=== PATIENT | female | born 1960 | race African-American/Black ===

== ENCOUNTER 2020-06-21 16:14 | Inpatient (IN) | payer MEDICAID, OTHER ==
[~2020-06-21] VITALS: Ht 165.1 cm; Wt 68.3 kg
[2020-06-21] MEDS ORDERED: LORAZEPAM 2MG/ML CPJ IM STA (16:54)
[2020-06-21] MEDS ORDERED: SODIUM CHLORIDE 0.9% 1,000 ML IV ONE ×2 (17:00)
[2020-06-21] MEDS ORDERED: LORAZEPAM 2MG/ML CPJ IV ONE (17:15)
[2020-06-21 17:25] LABS: BASOPHILS % 0.8 % (0.0-2.0); EOSINOPHILS % 1.9 % (0.0-5.0); HEMATOCRIT. 30.5 % (36.0-48.0); HEMOGLOBIN. 10.5 g/dL (12.0-16.0); LYMPHOCYTES % 33.7 % (20.0-50.0); MEAN CORPUSCULAR HEMOGLOBIN 32.1 pg (28.0-32.0); MEAN CORPUSCULAR VOLUME 93.2 fL (81.0-99.0); MEAN PLATELET VOLUME 8.9 fl (7.4-10.4); MONOCYTES % 8.7 % (2.0-8.0); NEUTROPHILS % 54.9 % (40.0-76.0); PLATELET 193 x1000/uL (130-400); RED BLOOD CELL COUNT 3.27 mill/uL (4.2-5.4); RED CELL DISTRIBUTION WIDTH 15.2 % (11.6-14.6)
[2020-06-21 17:27] LABS: CHLORIDE 97 mEq/L (98-107)
[2020-06-21 17:30] LABS: PARTIAL THROMBOPLASTIN TIME 27.3 sec (23.4-31.0); PROTHROMBIN TIME 10.5 sec (9.6-11.0)
[2020-06-21 17:32] LABS: ETHANOL BLOOD < 10 mg/dL
[2020-06-21] MEDS ORDERED: DEXTROSE 50% WATER 50ML SYRINGE IV ONE ×2 (18:15→18:30)
[2020-06-21] MEDS ORDERED: DEXT 10% WATER 1,000 ML IV ONE (18:30)
[2020-06-21] MEDS ORDERED: CLONIDINE 0.1MG TABLET PO PRN (20:45)
[2020-06-21] MEDS ORDERED: LORAZEPAM 2MG/ML CPJ IV PRN (20:45)
[2020-06-21] MEDS ORDERED: DOCUSATE SODIUM 100MG CAPSULE PO PRN (20:45)
[2020-06-21] MEDS ORDERED: HYDROCODONE/ACETAMINOPHEN 5/325MG TABLET PO PRN (20:45)
[2020-06-21] MEDS ORDERED: MORPHINE SULFATE 2 MG/ML CPJ (NOT FOR IM USE) IV PRN (20:45)
[2020-06-21] MEDS ORDERED: ENOXAPARIN 40MG/0.4ML SYR SUBCUT SCH (20:45)
[2020-06-21] MEDS ORDERED: IPRATROPIUM/ALBUTEROL 0.5-3(2.5)MG/3ML NEB NEB PRN (20:45)
[2020-06-21] MEDS ORDERED: NA PHOS,M-B/NA PHOS,DI-BA ENEMA 118ML PR PRN (20:45)
[2020-06-21] MEDS ORDERED: ACETAMINOPHEN 325MG TABLET PO PRN (20:45)
[2020-06-21] MEDS ORDERED: GUAIFENESIN 200MG/10ML SUGAR FREE UDC PO PRN (20:45)
[2020-06-21] MEDS ORDERED: MAGNESIUM/ALUMINUM HYDROXIDE/SIMETHICONE 30ML UDC PO PRN (20:45)
[2020-06-21] MEDS ORDERED: DIPHENHYDRAMINE 50MG/ML VIAL IV PRN (20:45)
[2020-06-21] MEDS ORDERED: ONDANSETRON HCL 4MG/2ML INJ IV PRN (20:45)
[2020-06-21] MEDS: ENOXAPARIN 30MG/0.3ML SYR SUBCUT SCH (21:36)
[2020-06-21] MEDS: DEXT 5%/0.45% NACL 1000ML 1,000 ML IV SCH (21:36)
[2020-06-22] VITALS (12 sets, daily range): BP systolic 111–150; BP diastolic 45–79
[2020-06-22] MEDS ORDERED: DEXTROSE 50% WATER 50ML SYRINGE IV ONE (01:45)
[2020-06-22] MEDS ORDERED: DEXT 10% WATER 1,000 ML IV ONE (02:00)
[2020-06-22] MEDS ORDERED: DEXTROSE 50% WATER 50ML SYRINGE IV PRN ×2 (05:15)
[2020-06-22] MEDS: BLOOD SUGAR DIAGNOSTIC STRIP TEST SCH ×4 (06:12→20:47)
[2020-06-22] MEDS: DEXT 5%/0.45% NACL 1000ML 1,000 ML IV SCH ×2 (06:23→20:47)
[2020-06-22] MEDS: INSULIN LISPRO 100 UNITS/ML SUBCUT SCH ×4 (07:20→20:55)
[2020-06-22 07:30] LABS: BASOPHILS % 0.6 % (0.0-2.0); EOSINOPHILS % 1.8 % (0.0-5.0); HEMATOCRIT. 25.9 % (36.0-48.0); HEMOGLOBIN. 9.1 g/dL (12.0-16.0); LYMPHOCYTES % 21.1 % (20.0-50.0); MEAN CORPUSCULAR HEMOGLOBIN 32.3 pg (28.0-32.0); MEAN CORPUSCULAR VOLUME 92.1 fL (81.0-99.0); MEAN PLATELET VOLUME 8.9 fl (7.4-10.4); MONOCYTES % 9.9 % (2.0-8.0); NEUTROPHILS % 66.6 % (40.0-76.0); PLATELET 168 x1000/uL (130-400); RED BLOOD CELL COUNT 2.81 mill/uL (4.2-5.4); RED CELL DISTRIBUTION WIDTH 14.9 % (11.6-14.6)
[2020-06-22 07:35] LABS: CHLORIDE 97 mEq/L (98-107)
[2020-06-22 07:45] LABS: LDL CHOLESTEROL 83 mg/dL (5-100)
[2020-06-22 07:47] LABS: HDL CHOLESTEROL 84 mg/dL (40-59); T4 FREE 1.12 ng/dL (0.76-1.46)
[2020-06-22] MEDS ORDERED: CARV12.545 PO (08:10)
[2020-06-22] MEDS ORDERED: ASPI-1406 PO (08:10)
[2020-06-22] MEDS ORDERED: POTA20TA82 PO (08:10)
[2020-06-22] MEDS ORDERED: NEPVIT PO (08:10)
[2020-06-22] MEDS ORDERED: FERR325T23 PO (08:10)
[2020-06-22] MEDS ORDERED: AMLO10TA80 PO (08:10)
[2020-06-22] MEDS ORDERED: DOCU-150 PO (08:10)
[2020-06-22] MEDS ORDERED: ERGO500013 PO (08:20)
[2020-06-22] MEDS: ASPIRIN 81MG EC TABLET PO SCH (08:30)
[2020-06-22] MEDS: ENOXAPARIN 30MG/0.3ML SYR SUBCUT SCH (20:47)
[2020-06-23] VITALS (10 sets, daily range): BP systolic 138–179; BP diastolic 57–80
[2020-06-23] MEDS: BLOOD SUGAR DIAGNOSTIC STRIP TEST SCH ×4 (06:14→21:32)
[2020-06-23] MEDS: INSULIN LISPRO 100 UNITS/ML SUBCUT SCH ×4 (07:20→21:45)
[2020-06-23 07:54] LABS: BASOPHILS % 0.6 % (0.0-2.0); EOSINOPHILS % 5.3 % (0.0-5.0); HEMATOCRIT. 24.4 % (36.0-48.0); HEMOGLOBIN. 8.6 g/dL (12.0-16.0); LYMPHOCYTES % 35.3 % (20.0-50.0); MEAN CORPUSCULAR HEMOGLOBIN 32.5 pg (28.0-32.0); MEAN CORPUSCULAR VOLUME 92.5 fL (81.0-99.0); MEAN PLATELET VOLUME 8.7 fl (7.4-10.4); MONOCYTES % 11.5 % (2.0-8.0); NEUTROPHILS % 47.3 % (40.0-76.0); PLATELET 168 x1000/uL (130-400); RED BLOOD CELL COUNT 2.64 mill/uL (4.2-5.4); RED CELL DISTRIBUTION WIDTH 14.3 % (11.6-14.6)
[2020-06-23] MEDS: ASPIRIN 81MG EC TABLET PO SCH (08:32)
[2020-06-23] MEDS ORDERED: DOCU-272 PO (09:50)
[2020-06-23] MEDS ORDERED: DOXY100C2 PO (09:50)
[2020-06-23] MEDS ORDERED: HUM100IN INJ (09:50)
[2020-06-23] MEDS ORDERED: REN800 PO (09:52)
[2020-06-23] MEDS ORDERED: CALC667C PO (09:52)
[2020-06-23] MEDS ORDERED: MEDICATION NOT ON FORMULARY EA (Sevelamer Hcl (Renagel) 800 MG) PO SCH (13:00)
[2020-06-23] MEDS: SEVELAMER CARBONATE 800 MG TABLET PO SCH (17:26)
[2020-06-23] MEDS: ENOXAPARIN 30MG/0.3ML SYR SUBCUT SCH (21:32)
[2020-06-23] MEDS: DEXT 5%/0.45% NACL 1000ML 1,000 ML IV SCH (21:32)
[2020-06-24 00:03] VITALS: BP 153/75
[2020-06-24 02:00] VITALS: BP 145/72
[2020-06-24 04:00] VITALS: BP 147/66
[2020-06-24 06:09] VITALS: BP 158/75
[2020-06-24] MEDS: BLOOD SUGAR DIAGNOSTIC STRIP TEST SCH (06:11)
[2020-06-24] MEDS: INSULIN LISPRO 100 UNITS/ML SUBCUT SCH (06:55)
[2020-06-24 07:45] VITALS: BP 155/66
[2020-06-24] MEDS: SEVELAMER CARBONATE 800 MG TABLET PO SCH (07:59)
[2020-06-24] MEDS: ASPIRIN 81MG EC TABLET PO SCH (07:59)
[2020-06-24 10:01] VITALS: BP 155/66
[2020-06-24] MEDS ORDERED: EPOETIN ALFA 10000UNITS/ML VIAL SUBCUT SCH (21:00)
== END 2020-06-24 10:30 | disposition home or self-care (01) | DRG 52 ==
LOC: ER 16:14 → MICUSO 20:30 → 3WST 06-22 01:10
PROVIDERS: ADMIT Internal Medicine; ATTEND Internal Medicine
PROC: 5A1D70Z Performance of Urinary Filtration, Intermittent, Less than 6 Hours Per Day (ICD-10-PCS; principal; 2020-06-22)
PROC: 5A1D70Z Performance of Urinary Filtration, Intermittent, Less than 6 Hours Per Day (ICD-10-PCS; 2020-06-24)
DX: G93.41 Metabolic encephalopathy (principal); E11.649 Type 2 diabetes mellitus with hypoglycemia without coma; N18.6 End stage renal disease; I12.0 Hypertensive chronic kidney disease with stage 5 chronic kidney disease or end stage renal disease; I51.7 Cardiomegaly; D64.9 Anemia, unspecified; E11.22 Type 2 diabetes mellitus with diabetic chronic kidney disease; E46 Unspecified protein-calorie malnutrition; E87.1 Hypo-osmolality and hyponatremia; Z78.1 Physical restraint status; Z99.2 Dependence on renal dialysis; Z88.0 Allergy status to penicillin; Z68.25 Body mass index [BMI] 25.0-25.9, adult
CPT/HCPCS: 36415; 71045; 80048; 80053; 80061; 80307; 80320; 80329; 82140; 82962; 83036; 83880; 84439; 84443; 84484; 85025; 86850; 86900; 93005; 99291; J1650; J1815; J2060; J7030; G0480